=== PATIENT | male | born 1975 | race Caucasian/White ===

== ENCOUNTER → 2016-10-07 07:34 | Day surgery (SDC) | payer OTHER ==
--- NOTE | 2016-09-28 20:34 | HP ---
PREOPERATIVE HISTORY AND PHYSICAL: DATE OF ADMISSION/SURGERY: 10/07/16 - [facility] DATE OF OFFICE VISIT/ENCOUNTER: 09/28/16 PROVIDER: Dr. Radha Riley. (DICTATED BY CHARITY BARRAZA) PROCEDURE: Left middle finger trigger finger release. CHIEF COMPLAINT: Triggering of left middle finger. HISTORY OF PRESENT ILLNESS: This is a 41-year-old male who complains of clicking and catching in his left middle finger for close to a year. He has had history of trigger fingers in other fingers as well and has had trigger finger releases recently. On the other hand, it has been quite well with that. He reports the left middle finger is becoming more bothersome for him, and he would like to proceed with surgical intervention at this time. PAST MEDICAL HISTORY: 1. Diabetes type 1. 2. Hypertension. 3. Hypercholesterolemia. 4. Recovering alcoholic. PAST SURGICAL HISTORY: 1. Right middle finger trigger release. 2. Ronald teeth extraction. 3. Right ring finger trigger release. 4. Dupuytren's nodule excision from right palm. CURRENT MEDICATIONS: 1. Citalopram hydrobromide 40 mg daily. 2. Humalog 1000 units per mL, 3 units t.i.d. before meals. 3. Lisinopril 5 mg daily. 4. Simvastatin 5 mg daily. ALLERGIES: No known drug allergies. FAMILY MEDICAL HISTORY: Significant for stroke and hypertension. 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 He reports being a former smoker. He quit approximately 13 years ago. Prior to that, he smoked two and a half packs per day for 15 years. He denies illicit drug use. Alcohol intake, he is a recovering alcoholic. He has been sober for over year and a half. REVIEW OF SYSTEMS: General: Negative for fever, chills, or night sweats. No known anesthesia problems. HEENT: Negative for headache, lightheadedness, or syncopal episodes. Integumentary: Negative for abrasions, lesions, or open wounds. Cardiothoracic: Negative for chest pain, palpitations, or edema. Positive for hypertension. Pulmonary: Negative for shortness of breath with exertion, chronic cough or COPD. GI: Negative for nausea, vomiting, diarrhea, constipation or GERD. : Negative for nocturia, urinary frequency, urgency, history of UTIs or kidney problems. Musculoskeletal: Positive for current complaint. Negative for chronic or intermittent back pain or history of fractures. Neurological: Negative for paresthesias, numbness, history of seizure, stroke or epilepsy. Endocrine: Positive for type 1 diabetes. Negative for thyroid issues. Hematologic: Negative for easy bruising anemia, excessive bleeding, or history of DVT. Infectious Disease: Negative for history of MRSA, hepatitis C or HIV. PHYSICAL EXAMINATION GENERAL: Well-developed, well-nourished 41-year-old male, in no acute distress. VITAL SIGNS: Height 5 feet 10 inches, weight 205 pounds, pulse rate 67, blood pressure 128/65. HEENT: Normocephalic, atraumatic. Pupils are equal, round, and reactive to light and accommodation. Extraocular movements are intact. NECK: Supple. No palpable lymph nodes. Throat is clear. PULMONARY: Lungs are clear to auscultation bilaterally. No wheezes, rales, or rhonchi. CARDIOTHORACIC: Regular rate and rhythm. S1, S2. No murmurs, rubs, or gallops. No edema. ABDOMEN: Positive bowel sounds, soft, nontender. MUSCULOSKELETAL: On exam of his left hand, there is tenderness to palpation at the left middle finger A1 argenis. He has full extension of the finger and near full flexion, but has increased pain through range of motion. He has a palpable nodule in the area of A1 argenis. Neurovascular function is intact. NEUROLOGIC: Alert and oriented x3. Cranial nerves II through XII are intact. Sensation is intact to light touch. IMPRESSION: Left middle finger trigger finger. PLAN: The patient is scheduled to undergo a left middle finger trigger finger release with Dr. Riley on 10/07/16. He will follow up in 10 to 14 days in the office for evaluation and suture removal postoperatively. He will take over-the - counter ibuprofen and/or Tylenol for postoperative pain management. CHARITY BARRAZA [id number]/[facility] #: [id number] MTDD
[~2016-10-07 07:34] MED LIST: Buffered Lidocaine 1% SYR 3ML* 3 ML/SYR SYRINGE INTRADERM ONE; Buffered Lidocaine 1% SYR 3ML* 3 ML/SYR SYRINGE ONE; Famotidine IV* 10 MG/ML 2 ML (20 mg) IV ONE; Famotidine IV* 10 MG/ML 2 ML (20 mg) ONE; HYDROcodone/ACETAMIN 5-325 MG* 1 TAB PO PRN; Ketorolac INJ* 30 MG/ML 1 ML VIAL IV PRN; Lidocaine 1% INJ* 10 MG/ML 30 ML SDV ONE; Lidocaine 2% PF * 5 ML VIAL ONE; Midazolam* 1 MG/ML 5 ML VIAL (5 MG) ONE; Ondansetron INJ* 2 MG/ML VIAL ONE; PROCHLORPERAZINE INJ 5 MG/ML 2 ML VIAL IV PRN; Propofol* 10 MG/ML 20 ML BTL IV PUSH ONE; fentaNYL* 50 MCG/ML 2 ML VIAL (100 MCG VIAL) IV PRN; fentaNYL* 50 MCG/ML 2 ML VIAL (100 MCG VIAL) ONE
[2016-10-07 10:06] VITALS: BP 107/64
--- NOTE | 2016-10-07 20:14 | OP ---
DATE OF OPERATION: 10/07/16 [facility] DATE OF : 71 SURGEON: Radha Riley MD ANTIQUE COLLECTOR: Luci Karimi NP ANESTHESIOLOGIST: Darlene Brownlee MD ANESTHESIA: Local, MAC. PRE-OP DIAGNOSIS: Trigger finger of the left middle finger. POST-OP DIAGNOSIS: Trigger finger of the left middle finger. OPERATIVE PROCEDURE: Left middle finger trigger finger release, ESTIMATED BLOOD LOSS: Zero. TOURNIQUET TIME: 5 minutes. INDICATION: Theron is a 41-year-old male with triggering and locking of his left middle finger. He has had other trigger fingers in the past treated with surgery. He presents for trigger finger release on the left middle finger. DESCRIPTION OF PROCEDURE: The patient was brought to the operating room and was given a sedation anesthetic and a local infiltration of 10 cc of 1% plain lidocaine. The skin of his forearm and left forearm was prepped and draped in the usual sterile fashion. The hand and forearm were exsanguinated and tourniquet elevated to 250 mmHg. A transverse incision was made centered over the A1 argenis of the left middle finger. We dissected bluntly through the subcutaneous tissue down to the A1 argenis. The argenis was incised longitudinally completely releasing the tendons, which were in good condition. The wound was irrigated and skin edges reapproximated with 4-0 nylon suture. The wound was dressed with Xeroform, 4x4, Webril, and an Carlos wrap. The patient tolerated the procedure well and was brought to the recovery room in good condition. [id number]/[facility] #: [id number] MTDD
== END | disposition home or self-care (01) ==
LOC: OREAST 07:34
PROVIDERS: ATTEND Orthopaedic Surgery
DX: M65.332 Trigger finger, left middle finger (principal); E10.8 Type 1 diabetes mellitus with unspecified complications; Z79.4 Long term (current) use of insulin; I10 Essential (primary) hypertension
CPT/HCPCS: J2250; J2405; J2704; J3010